=== PATIENT | male | born 1980 | race African-American/Black ===

== ENCOUNTER 2021-11-30 12:28 | Emergency (ER) | payer SELFPAY ==
[2021-11-30] MEDS ORDERED: traMADol HCl 50 MG TAB ONE (13:13)
[2021-11-30] MEDS ORDERED: predniSONE 20 MG TAB ONE (13:13)
== END 2021-11-30 13:23 | disposition home or self-care (01) ==
LOC: BURERS 12:28
DX: M54.50 Low back pain, unspecified (principal); G89.29 Other chronic pain; M10.9 Gout, unspecified; F17.290 Nicotine dependence, other tobacco product, uncomplicated
CPT/HCPCS: 99283; J7512